=== PATIENT | female | born 1970 | race Caucasian/White ===

== ENCOUNTER 2018-07-01 19:11 | Emergency (ER) | payer BC ==
[2018-07-01] MEDS ORDERED: Sodium Chloride 0.9% 1,000 ML IV ONE (19:27)
--- NOTE | 2018-07-01 19:28 | EDM.PDOC ---
ED HPI GENERAL MEDICAL PROBLEM - General Chief Complaint: General Stated Complaint: dizzy spells,light headed Time Seen by Provider: 07/01/18 19:28 Source of Information: Reports: Patient - History of Present Illness INITIAL COMMENTS - FREE TEXT/NARRATIVE: HISTORY AND PHYSICAL: History of present illness: [Patient presents with dizziness associated with turning her head to the left has been present off-and-on for several months, apparently she had a recent MRI in May performed in [place] she doesn't known history of a pituitary adenoma that she is following She's also had recent sinus infection that was treated with unknown antibiotic a month prior 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 Gaviria for treatment of this As no fever nausea vomiting chills sweats ] Review of systems: As per history of present illness and below otherwise all systems reviewed and negative. Past medical history: As per history of present illness and as reviewed below otherwise noncontributory. Surgical history: As per history of present illness and as reviewed below otherwise noncontributory. Social history: No reported history of drug or alcohol abuse. Family history: As per history of present illness and as reviewed below otherwise noncontributory. Physical exam: HEENT: Atraumatic, normocephalic, pupils reactive, negative for conjunctival pallor or scleral icterus, mucous membranes moist, throat clear, neck supple, nontender, trachea midline. Lungs: Clear to auscultation, breath sounds equal bilaterally, chest nontender. Heart: S1S2, regular, negative for clicks, rubs, or JVD. Abdomen: Soft, nondistended, nontender. Negative for masses or hepatosplenomegaly. Negative for costovertebral tenderness. Pelvis: Stable nontender. Genitourinary: Deferred. Rectal: Deferred. Extremities: Atraumatic, negative for cords or calf pain. Neurovascular unremarkable. Neuro: Awake, alert, oriented. Cranial nerves II through XII unremarkable. Cerebellum unremarkable. Motor and sensory unremarkable throughout. Exam nonfocal. Diagnostics: [CBC CMP UA troponin EKG Chest [address] no contrast] MRI performed in May with reported pituitary adenoma per patient, MRI was performed in [place] results not available at this time Therapeutics: [Normal saline] 1 500 mg by mouth daily #10 no refill Scopolamine patch [id number]-[id number] symptomatic therapy Follow-up with primary Impression: Sphenoid sinusitis [Benign positional vertigo] Carpal tunnel syndrome Pituitary adenoma per patient history Definitive disposition and diagnosis as appropriate pending reevaluation and review of above. 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: Musculoskeletal History: Reports: None Neurological History: Reports: None Psychiatric History: Reports: None Endocrine/Metabolic History: Reports: Hypothyroidism Other Endocrine/Metabolic History: Pituitary adenoma Hematologic History: Reports: None Immunologic History: Reports: None Oncologic (Cancer) History: Reports: None Dermatologic History: Reports: None - Infectious Disease History Infectious Disease History: Reports: None - Past Surgical History Head Surgeries/Procedures: Reports: None Endocrine Surgical History: Reports: Thyroidectomy Social & Family History - Family History Family Medical History: Noncontributory - Tobacco Use Smoking Status *Q: Never Smoker Second Hand Smoke Exposure: No - Caffeine Use Caffeine Use: Reports: Coffee - Recreational Drug Use Recreational Drug Use: No ED ROS GENERAL - Review of Systems Review Of Systems: See Below ED EXAM, GENERAL - Physical Exam Exam: See Below Course - Vital Signs Last Recorded V/S: Last Vital Signs Temp 97.3 F 07/01/18 19:19 Pulse 65 07/01/18 19:19 Resp 16 07/01/18 19:19 BP 130/71 07/01/18 19:19 Pulse Ox 98 07/01/18 19:19 - Orders/Labs/Meds Orders: Active Orders 24 hr Category Date Time Status EKG Documentation Completion [RC] STAT Care 07/01/18 19:26 Active Labs: Laboratory Tests 07/01/18 07/01/18 07/01/18 Range/Units 19:28 19:39 19:39 WBC 7.32 (4.0-11.0) K/uL RBC 4.59 (4.30-5.90) M/uL Hgb 13.9 (12.0-16.0) g/dL Hct 39.4 (36.0-46.0) % MCV 85.8 (80.0-98.0) fL MCH 30.3 (27.0-32.0) pg MCHC 35.3 (31.0-37.0) g/dL RDW Std Deviation 40.3 (28.0-62.0) fl RDW Coeff of Marco Antonio 13 (11.0-15.0) % Plt Count 284 (150-400) K/uL MPV 9.00 (7.40-12.00) fL Neut % (Auto) 46.6 L (48.0-80.0) % Lymph % (Auto) 43.3 H (16.0-40.0) % Prentiss % (Auto) 7.9 (0.0-15.0) % Eos % (Auto) 1.8 (0.0-7.0) % Baso % (Auto) 0.4 (0.0-1.5) % Neut # (Auto) 3.4 (1.4-5.7) K/uL Lymph # (Auto) 3.2 H (0.6-2.4) K/uL Prentiss # (Auto) 0.6 (0.0-0.8) K/uL Eos # (Auto) 0.1 (0.0-0.7) K/uL Baso # (Auto) 0.0 (0.0-0.1) K/uL Nucleated RBC % 0.0 /100WBC Nucleated RBCs # 0 K/uL Sodium 135 L (136-145) mmol/L Potassium 4.0 (3.5-5.1) mmol/L Chloride 100 (98-107) mmol/L Carbon Dioxide 23.9 (21.0-32.0) mmol/L BUN 15 (7.0-18.0) mg/dL Creatinine 0.7 (0.6-1.0) mg/dL Est Cr Clr Drug Dosing 101.60 mL/min Estimated GFR (MDRD) > 60.0 ml/min Glucose 91 (74-106) mg/dL Calcium 8.9 (8.5-10.1) mg/dL Total Bilirubin 0.3 (0.2-1.0) mg/dL AST 19 (15-37) IU/L ALT 39 (14-63) IU/L Alkaline Phosphatase 81 (46-116) U/L Troponin I < 0.050 (0.000-0.056) ng/mL Total Protein 8.2 (6.4-8.2) g/dL Albumin 4.1 (3.4-5.0) g/dL Globulin 4.1 H (2.6-4.0) g/dL Albumin/Globulin Ratio 1.0 (0.9-1.6) Urine Color YELLOW Urine Appearance CLEAR Urine pH 7.0 (5.0-8.0) Ur Specific Clyo 1.020 (1.001-1.035) Urine Protein NEGATIVE (NEGATIVE) mg/dL Urine Glucose (UA) NEGATIVE (NEGATIVE) mg/dL Urine Ketones 40 H (NEGATIVE) mg/dL Urine Occult Blood NEGATIVE (NEGATIVE) Urine Nitrite NEGATIVE (NEGATIVE) Urine Bilirubin NEGATIVE (NEGATIVE) Urine Urobilinogen 0.2 (<2.0) EU/dL Ur Leukocyte Esterase NEGATIVE (NEGATIVE) Meds: Medications Discontinued Medications Generic Name Dose Route Start Last Admin Trade Name Freq PRN Reason Stop Dose Admin Sodium Chloride 1,000 mls @ 999 mls/hr 07/01/18 19:27 07/01/18 19:45 Normal Saline IV 07/01/18 20:27 999 mls/hr STAT ONE Administration Departure - Departure Time of Disposition: 20:41 Disposition: Home, Self-Care 01 Condition: Good Clinical Impression: Sinusitis, Pituitary adenoma, Carpal tunnel syndrome - Discharge Information Referrals: PCP,None [Primary Care Provider] - Forms: ED Department Discharge Additional Instructions: Medication as prescribed [id number] symptomatic therapy is discussed Return if symptoms persist or worsen Follow-up with primary care in [place] for continued management of the pituitary adenoma He may consider following with Dr. Gar concerning level tunnel symptoms, she can a contact number below to schedule appropriate follow-up [facility] - Plastic Surgery Professional Building [address] [place] [address], [address] [place] [address] [facility] - [facility]NT [address] [place] [id number] The following information is given to patients seen in the emergency department who are being discharged to home. This information is to outline your options for follow-up care. We provide all patients seen in our emergency department with a follow-up referral. The need for follow-up, as well as the timing and circumstances, are variable depending upon the specifics of your emergency department visit. If you don't have a primary care physician on staff, we will provide you with a referral. We always advise you to contact your personal physician following an emergency department visit to inform them of the circumstance of the visit and for follow-up with them and/or the need for any referrals to a consulting specialist. The emergency department will also refer you to a specialist when appropriate. This referral assures that you have the opportunity for follow-up care with a specialist. All of these measure are taken in an effort to provide you with optimal care, which includes your follow-up. Under all circumstances we always encourage you to contact your private physician who remains a resource for coordinating your care. When calling for follow-up care, please make the office aware that this follow-up is from your recent emergency room visit. If for any reason you are refused follow-up, please contact the [facility] emergency department at and asked to speak to the emergency department charge nurse. - My Orders Last 24 Hours: My Active Orders 07/01/18 19:26 EKG Documentation Completion [RC] STAT - Assessment/Plan Last 24 Hours: My Active Orders 07/01/18 19:26 EKG Documentation Completion [RC] STAT
--- NOTE | 2018-07-01 20:08 | CT ---
INDICATION: Dizziness TECHNIQUE: CT Head without i.v. contrast. COMPARISON: None FINDINGS: CSF space: The ventricles are normal for age. Brain: No evidence of mass, acute infarction or hemorrhage is seen. No mass-effect or midline shift is seen. The brain parenchyma is otherwise normal in appearance with preservation of the brown-white matter junction. Calvarium: Near-complete opacification of the left sphenoid sinus is noted. There remainder of the paranasal sinuses are well aerated. The mastoid air cells are clear. The visualized orbits are grossly unremarkable. The calvarium is unremarkable in appearance with no fractures identified. IMPRESSIONS: 1. No evidence of acute infarction, intracranial hemorrhage, or mass-effect seen. 2. Near-complete opacification of the left sphenoid sinus is noted. Dictated by Remi Castellon MD @ 07/01/2018 8:08:26 PM Please note that all CT scans at this facility use dose modulation, iterative reconstruction, and/or weight-based dosing when appropriate to reduce radiation dose to as low as reasonably achievable. Dictated by: Remi Castellon MD @ 07/01/2018 20:08:29 (Electronically Signed)
[2018-07-01 20:12] LABS: CHLORIDE,CL 100 mmol/L (98-107); SODIUM,NA 135 mmol/L (136-145)
--- NOTE | 2018-07-01 20:30 | CR ---
INDICATION: Shortness of breath TECHNIQUE: Chest radiograph 1 view COMPARISON: None FINDINGS: Mediastinum: The mediastinum is normal in appearance. The heart silhouette is normal in size and morphology. Lung: Both lungs are unremarkable in appearance. No sign of pleural effusion seen. No pneumothorax is identified. Musculoskeletal: Unremarkable for age. IMPRESSION: 1. No acute cardiopulmonary disease is seen. Dictated by: Remi Castellon MD @ 07/01/2018 20:27:38 (Electronically Signed)
== END 2018-07-01 21:13 | disposition home or self-care (01) ==
LOC: MW.ED 19:11
DX: H81.10 Benign paroxysmal vertigo, unspecified ear (principal); G56.03 Carpal tunnel syndrome, bilateral upper limbs; J32.3 Chronic sphenoidal sinusitis; D35.2 Benign neoplasm of pituitary gland
CPT/HCPCS: 70450; 71045; 80053; 81003; 84484; 85025; 93005; 96360; 99284; J7040

== ENCOUNTER 2018-11-18 17:05 | Emergency (ER) | payer BC ==
[2018-11-18] MEDS ORDERED: Ondansetron 4 MG/2 ML SDV IVPUSH ONE (17:08)
[2018-11-18] MEDS ORDERED: Ketorolac 30 MG/ML SDV IVPUSH ONE (17:08)
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
[2018-11-18] MEDS ORDERED: Morphine 2 MG/ML Syringe IVPUSH ONE (18:37)
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
== END 2018-11-18 20:10 | disposition home or self-care (01) ==
LOC: MW.ED 17:05
DX: S89.91XA Unspecified injury of right lower leg, initial encounter (principal); E03.9 Hypothyroidism, unspecified; Z79.899 Other long term (current) drug therapy; V89.2XXA Person injured in unspecified motor-vehicle accident, traffic, initial encounter
CPT/HCPCS: 71045; 72040; 73502; 73560; 73610; 96374; 96375; 99283; J1885; J2270; J2405

== ENCOUNTER 2020-10-13 13:48 | Emergency (ER) | payer BC ==
--- NOTE | 2020-10-13 14:04 | EDM.PDOC ---
ED HPI GENERAL MEDICAL PROBLEM - General Chief Complaint: Headache Stated Complaint: HEADACHE Time Seen by Provider: 10/13/20 13:49 Source of Information: Reports: Patient History Limitations: Reports: No Limitations - History of Present Illness INITIAL COMMENTS - FREE TEXT/NARRATIVE: HISTORY AND PHYSICAL: History of present illness: Patient is a 50-year-old female who presents to the emergency room with complaints of a tension type headache over the past 5 days. She describes it as pressure type band around her scalp and behind her eyes with light sensitivity and nausea. She has been using ibuprofen with out much relief. She does mention that she has had a menstrual period (normal timing but slightly heavier) for 7 days and is concerned it may be related to menopause. Patient denies any fever, chills, change in vision, syncope or near syncope. Denies any chest pain, back pain, shortness of breath or cough. Denies any abdominal pain, nausea, vomiting, diarrhea, constipation or dysuria. Has not noted any blood in urine or stool. No concern for . Patient has been eating and drinking appropriately. Review of systems: As per history of present illness and below otherwise all systems reviewed and negative. Past medical history: As per history of present illness and as reviewed below otherwise noncontributory. Surgical history: As per history of present illness and as reviewed below otherwise noncontributory. Social history: See social history for further information Family history: As per history of present illness and as reviewed below otherwise noncontributory. Physical exam: General: Well developed and well nourished. Alert and orientated x 3. Nontoxic in appearance and in no acute distress. Vital signs are stable and have been reviewed by me. Nursing notes were reviewed. HEENT: Atraumatic, normocephalic, pupils equal and reactive bilaterally, negative for conjunctival pallor or scleral icterus, mucous membranes moist, TMs normal bilaterally, throat clear, neck supple, nontender, trachea midline. No drooling or trismus noted. No meningeal signs. No hot potato voice noted. Lungs: Clear to auscultation bilaterally. No wheezes, rales, or rhonchi. Chest nontender. Normal work of breathing, no accessory muscles used. Heart: S1S2, regular rate and rhythm without overt murmur, gallops, or rubs. No JVD. No peripheral edema Abdomen: Soft, nondistended, nontender. Normoactive bowel sounds. Negative for masses or costovertebral tenderness. Pelvis: Stable nontender. Genitourinary/Rectal: Deferred. Skin: Intact, warm, dry. No lesions or rashes noted. Hematologic: No petechiae or purpra. Mucosa appropriate color and normal nail bed color and refill. Extremities: Atraumatic, moves all extremities per self without difficulty or deficits, negative for cords or calf pain. Neurovascular unremarkable. Neuro: Awake, alert, oriented. Cranial nerves II through XII unremarkable. Cerebellum unremarkable. Motor and sensory unremarkable throughout. Exam nonfocal. Psychiatric: Mood and affect are appropriate. Normal thought process. Answering questions appropriately. Notes: *This patient was seen and evaluated during the 2019 SARS-CoV-2 novel coronavirus pandemic period. Community viral transmission is ongoing at time of this encounter and the emergency department is operating under pandemic response procedures. Patient's head CT is unremarkable. Her symptoms have improved greatly. I have talked with the patient about today's findings, in addition to providing specific details for plan of care. Reassessment at the time of disposition demonstrates that the patient is in no acute distress. The patient is stable for discharge, counseling was provided and we discussed in great detail signs and symptoms that would prompt them to return to the Emergency Department. Medication, follow up and supportive care measures were reviewed and discussed. Voices understanding and is agreeable to plan of care. Denies any further questions or concerns at this time. Diagnostics: Head CT Therapeutics: IV fluid, Zofran, Ativan Prescription: None Impression: Tension headache Plan: 1. You were evaluated today on an emergent basis. Your head CT is unremarkable. 2. You can alternate Tylenol and ibuprofen as needed for pain and fever management. 3. We encourage you to follow up with your primary care provider and/or recommended specialist in the next few days for re-evaluation and further care/management. 4. If your symptoms should worsen, new symptoms develop or any of the signs and symptoms we discussed should arise please return to the emergency room or call 911 (if needed). Definitive disposition and diagnosis as appropriate pending reevaluation and review of above. 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: Musculoskeletal History: Reports: None Neurological History: Reports: None Psychiatric History: Reports: None Endocrine/Metabolic History: Reports: Hypothyroidism Other Endocrine/Metabolic History: Pituitary adenoma Hematologic History: Reports: None Immunologic History: Reports: None Oncologic (Cancer) History: Reports: None Dermatologic History: Reports: None - Infectious Disease History Infectious Disease History: Reports: None - Past Surgical History Head Surgeries/Procedures: Reports: None Endocrine Surgical History: Reports: Thyroidectomy Social & Family History - Family History Family Medical History: No Pertinent Family History - Caffeine Use Caffeine Use: Reports: Coffee ED ROS GENERAL - Review of Systems Review Of Systems: Comprehensive ROS is negative, except as noted in HPI. - Physical Exam Exam: See Below (See dictation) Course - Vital Signs Last Recorded V/S: Last Vital Signs Temp 98.0 F 10/13/20 15:05 Pulse 84 10/13/20 15:05 Resp 18 10/13/20 15:05 BP 131/81 10/13/20 15:05 Pulse Ox 98 10/13/20 15:05 - Orders/Labs/Meds Meds: Medications Discontinued Medications Generic Name Dose Route Start Last Admin Trade Name Refugio PRN Reason Stop Dose Admin Sodium Chloride 1,000 mls @ 999 mls/hr 10/13/20 14:09 10/13/20 14:43 Normal Saline IV 10/13/20 15:09 999 mls/hr STAT ONE Administration Ketorolac Tromethamine 30 mg 10/13/20 14:09 10/13/20 14:43 Ketorolac 30 Mg/Ml Sdv IVPUSH 10/13/20 14:10 30 mg ONETIME ONE Administration Lorazepam 1 mg 10/13/20 14:10 10/13/20 14:42 Lorazepam 2 Mg/Ml Sdv IVPUSH 10/13/20 14:11 1 mg ONETIME ONE Administration Ondansetron HCl 4 mg 10/13/20 14:09 10/13/20 14:42 Ondansetron 4 Mg/2 Ml Sdv IVPUSH 10/13/20 14:10 4 mg ONETIME ONE Administration Departure - Departure Time of Disposition: 15:42 Disposition: Home, Self-Care 01 Clinical Impression: Tension-type headache - Discharge Information Instructions: General Headache Without Cause, [id number] Referrals: PCP,None [Primary Care Provider] - Forms: ED Department Discharge Additional Instructions: The following information is given to patients seen in the emergency department who are being discharged to home. This information is to outline your options for follow-up care. We provide all patients seen in our emergency department with a follow-up referral. The need for follow-up, as well as the timing and circumstances, are variable depending upon the specifics of your emergency department visit. If you don't have a primary care physician on staff, we will provide you with a referral. We always advise you to contact your personal physician following an emergency department visit to inform them of the circumstance of the visit and for follow-up with them and/or the need for any referrals to a consulting spec ialist. The emergency department will also refer you to a specialist when appropriate. This referral assures that you have the opportunity for follow-up care with a specialist. All of these measure are taken in an effort to provide you with optimal care, which includes your follow-up. Under all circumstances we always encourage you to contact your private physician who remains a resource for coordinating your care. When calling for follow-up care, please make the office aware that this follow-up is from your recent emergency room visit. If for any reason you are refused follow-up, please contact the [facility] Emergency Department at and asked to speak to the emergency department charge nurse. [facility] [address] [place] [id number] [facility] [address] [place] [id number] Thank you for choosing the [facility] emergency department in [place] for your medical needs today. It was a pleasure caring for you. Today you were seen in the emergency department for headache. 1. You were evaluated today on an emergent basis. Your head CT is unremarkable. 2. You can alternate Tylenol and ibuprofen as needed for pain and fever management. 3. We encourage you to follow up with your primary care provider and/or recommended specialist in the next few days for re-evaluation and further care/management. 4. If your symptoms should worsen, new symptoms develop or any of the signs and symptoms we discussed should arise please return to the emergency room or call 911 (if needed). Sepsis Event Note (ED) - Evaluation Sepsis Screening Result: No Definite Risk - Focused Exam Vital Signs: Vital Signs Temp Pulse Resp BP Pulse Ox 10/13/20 15:05 98.0 F 84 18 131/81 98 10/13/20 14:01 96.3 F L 78 19 150/79 H 98
[2020-10-13] MEDS ORDERED: Ondansetron 4 MG/2 ML SDV IVPUSH ONE (14:09)
[2020-10-13] MEDS ORDERED: Ketorolac 30 MG/ML SDV IVPUSH ONE (14:09)
[2020-10-13] MEDS ORDERED: Sodium Chloride 0.9% 1,000 ML IV ONE (14:09)
[2020-10-13] MEDS ORDERED: LORazepam 2 MG/ML SDV IVPUSH ONE (14:10)
--- NOTE | 2020-10-13 15:39 | CT ---
INDICATION: Headache TECHNIQUE: CT head without contrast. COMPARISON: None FINDINGS: CSF spaces: Within normal limits for age. Brain parenchyma: The brown-white differentiation is normal. No sign of mass, hemorrhage, or midline shift. Skull base and calvarium: The visualized paranasal sinuses and mastoid air cells demonstrate no acute or significant findings. The visualized orbits are grossly unremarkable. No skull fractures. IMPRESSION: Unremarkable noncontrast head CT. Please note that all CT scans at this facility use dose modulation, iterative reconstruction, and/or weight-based dosing when appropriate to reduce radiation dose to as low as reasonably achievable. Dictated by Talib Oliveira MD @ 10/13/2020 3:37:[address] Talib Oliveira @ Oct 13 2020 3:37PM
== END 2020-10-13 16:07 | disposition home or self-care (01) ==
LOC: MW.ED 13:48
DX: G44.209 Tension-type headache, unspecified, not intractable (principal); E03.9 Hypothyroidism, unspecified; Z79.899 Other long term (current) drug therapy
CPT/HCPCS: 70450; 96374; 96375; 99284; J1885; J2060; J2405; J7030; 99283

== ENCOUNTER 2020-10-16 21:18 | Emergency (ER) | payer BC ==
--- NOTE | 2020-10-16 21:31 | EDM.PDOC ---
ED HPI GENERAL MEDICAL PROBLEM - General Chief Complaint: Headache Stated Complaint: MIGRAINE, NOT GETTING BETTER Time Seen by Provider: 10/16/20 21:24 Source of Information: Reports: Patient History Limitations: Reports: No Limitations - History of Present Illness INITIAL COMMENTS - FREE TEXT/NARRATIVE: 50-year-old female past medical history of pituitary adenoma, status post thyroidectomy on Synthroid presents for headache. Patient notes that she was seen in the emergency department a few days ago for similar. She was concerned that maybe was related to her menopause and she is currently on her menstrual period. She was diagnosed with tension headache and treated with IV medications in the ER and did feel better but notes that since going home the headache is recurred. Not worst headache of life. Not thunderclap onset. No associated visual changes or one-sided body weakness or slurred speech or confusion. Headache is in the bilateral back of her neck radiating through her temples. It is constant. She has tried Tylenol Motrin without relief. She did have a CT scan on the that was normal. 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: Musculoskeletal History: Reports: None Neurological History: Reports: None Psychiatric History: Reports: None Endocrine/Metabolic History: Reports: Hypothyroidism Other Endocrine/Metabolic History: Pituitary adenoma Hematologic History: Reports: None Immunologic History: Reports: None Oncologic (Cancer) History: Reports: None Dermatologic History: Reports: None - Infectious Disease History Infectious Disease History: Reports: Chicken Pox - Past Surgical History Head Surgeries/Procedures: Reports: None Endocrine Surgical History: Reports: Thyroidectomy Social & Family History - Family History Family Medical History: No Pertinent Family History - Caffeine Use Caffeine Use: Reports: Coffee ED ROS GENERAL - Review of Systems Review Of Systems: Comprehensive ROS is negative, except as noted in HPI. ED EXAM, GENERAL - Physical Exam Exam: See Below Exam Limited By: No Limitations General Appearance: Alert, WD/WN, No Apparent Distress Eye Exam: Bilateral Eye: EOMI, PERRL Ears: Hearing Grossly Normal Throat/Mouth: Normal Voice, No Airway Compromise Head: Atraumatic, Normocephalic Neck: Normal Inspection, Supple Respiratory/Chest: No Respiratory Distress, Lungs Clear, Normal Breath Sounds, No Accessory Muscle Use Cardiovascular: Normal Peripheral Pulses, Regular Rate, Rhythm Extremities: Normal Inspection Neurological: Alert, Oriented, CN II-XII Intact, Normal Cognition, Normal Gait, No Motor/Sensory Deficits Psychiatric: Normal Affect, Normal Mood Skin Exam: Warm, Dry, Intact, Normal Color Course - Vital Signs Last Recorded V/S: Last Vital Signs Temp 96.8 F L 10/16/20 21:25 Pulse 72 10/16/20 21:25 Resp 18 10/16/20 21:25 BP 160/87 H 10/16/20 21:25 Pulse Ox 98 10/16/20 21:25 - Orders/Labs/Meds Orders: Active Orders 24 hr Category Date Time Status Sodium Chloride 0.9% [Saline Flush] Med 10/16/20 21:53 Active 10 ml FLUSH ASDIRECTED PRN Sodium Chloride 0.9% [Saline Flush] Med 10/16/20 21:53 Active 2.5 ml FLUSH ASDIRECTED PRN Saline Lock Insert [OM.PC] Stat Oth 10/16/20 21:53 Ordered Medication Orders Sodium Chloride (Sodium Chloride 0.9% 10 Ml Syringe) 10 ml FLUSH ASDIRECTED PRN PRN Reason: Keep Vein Open Last Admin: 10/16/20 21:58 Dose: 10 ml Documented by: QUIRINO Sodium Chloride (Sodium Chloride 0.9% 2.5 Ml Syringe) 2.5 ml FLUSH ASDIRECTED PRN PRN Reason: Keep Vein Open Last Admin: 10/16/20 21:58 Dose: 2.5 ml Documented by: QUIRINO Labs: Laboratory Tests 10/16/20 10/16/20 Range/Units 22:00 22:00 WBC 5.70 (4.0-11.0) K/uL RBC 4.41 (4.30-5.90) M/uL Hgb 13.4 (12.0-16.0) g/dL Hct 38.3 (36.0-46.0) % MCV 86.8 (80.0-98.0) fL MCH 30.4 (27.0-32.0) pg MCHC 35.0 (31.0-37.0) g/dL RDW Std Deviation 41.5 (28.0-62.0) fl RDW Coeff of Marco Antonio 13 (11.0-15.0) % Plt Count 282 (150-400) K/uL MPV 9.50 (7.40-12.00) fL Neut % (Auto) 43.8 L (48.0-80.0) % Lymph % (Auto) 41.1 H (16.0-40.0) % Mcdowell % (Auto) 10.5 (0.0-15.0) % Eos % (Auto) 4.2 (0.0-7.0) % Baso % (Auto) 0.4 (0.0-1.5) % Neut # (Auto) 2.5 (1.4-5.7) K/uL Lymph # (Auto) 2.3 (0.6-2.4) K/uL Mcdowell # (Auto) 0.6 (0.0-0.8) K/uL Eos # (Auto) 0.2 (0.0-0.7) K/uL Baso # (Auto) 0.0 (0.0-0.1) K/uL Nucleated RBC % 0.0 /100WBC Nucleated RBCs # 0 K/uL Sodium 139 (136-145) mmol/L Potassium 4.5 (3.5-5.1) mmol/L Chloride 104 (98-107) mmol/L Carbon Dioxide 26.9 (21.0-32.0) mmol/L BUN 16 (7.0-18.0) mg/dL Creatinine 0.7 (0.6-1.0) mg/dL Est Cr Clr Drug Dosing 99.37 mL/min Estimated GFR (MDRD) > 60.0 ml/min Glucose 99 (74-106) mg/dL Calcium 8.3 L (8.5-10.1) mg/dL Total Bilirubin 0.2 (0.2-1.0) mg/dL AST 14 L (15-37) IU/L ALT 27 (14-63) IU/L Alkaline Phosphatase 71 (46-116) U/L Total Protein 7.6 (6.4-8.2) g/dL Albumin 3.6 (3.4-5.0) g/dL Globulin 4.0 (2.6-4.0) g/dL Albumin/Globulin Ratio 0.9 (0.9-1.6) Free T4 1.68 H (0.76-1.46) ng/dL Free T3 2.96 (2.18-3.98) pg/mL Meds: Medications Generic Name Dose Route Start Last Admin Trade Name Freq PRN Reason Stop Dose Admin Sodium Chloride 10 ml 10/16/20 21:53 10/16/20 21:58 Sodium Chloride 0.9% 10 Ml Syringe FLUSH 10 ml ASDIRECTED PRN Administration Keep Vein Open Sodium Chloride 2.5 ml 10/16/20 21:53 10/16/20 21:58 Sodium Chloride 0.9% 2.5 Ml Syringe FLUSH 2.5 ml ASDIRECTED PRN Administration Keep Vein Open Discontinued Medications Generic Name Dose Route Start Last Admin Trade Name Freq PRN Reason Stop Dose Admin Diphenhydramine HCl 50 mg 10/16/20 21:53 10/16/20 21:58 Diphenhydramine 50 Mg/Ml Sdv IVPUSH 10/16/20 21:54 50 mg ONETIME ONE Administration Sodium Chloride 1,000 mls @ 999 mls/hr 10/16/20 21:53 10/16/20 21:58 Normal Saline IV 10/16/20 22:53 999 mls/hr .Bolus ONE Administration Ketorolac Tromethamine 15 mg 10/16/20 21:54 10/16/20 21:58 Ketorolac 15 Mg/Ml Sdv IVPUSH 10/16/20 21:55 15 mg ONETIME ONE Administration Metoclopramide HCl 10 mg 10/16/20 21:53 10/16/20 21:58 Metoclopramide 10 Mg/2 Ml Sdv IVPUSH 10/16/20 21:54 10 mg ONETIME ONE Administration - Re-Assessments/Exams Free Text/Narrative Re-Assessment/Exam: 10/16/20 21:56 We will treat symptomatically with 1 L IV fluid bolus, Reglan, Toradol, Benadryl. 10/16/20 23:22 Patient's headache is substantially improved. Her lab work does show a mild elevation of her free T4. I advised her to follow-up with her physician regarding this lab abnormality. Will discharge with a course of Fioricet. Return precautions were discussed at length. Patient understands and agrees with plan. Departure - Departure Time of Disposition: 23:22 Disposition: Home, Self-Care 01 Condition: Good Clinical Impression: Elevated serum free T4 level Headache Qualifiers: Headache type: unspecified Headache chronicity pattern: acute headache Intractability: not intractable Qualified Code(s): R51.9 - Headache, unspecified - Discharge Information Instructions: Migraine Headache Referrals: PCP,None [Primary Care Provider] - Forms: ED Department Discharge Additional Instructions: Please follow up with neurology, number provided below: [facility] [address], [address] [place] [address] The following information is given to patients seen in the emergency department who are being discharged to home. This information is to outline your options for follow-up care. We provide all patients seen in our emergency department with a follow-up referral. The need for follow-up, as well as the timing and circumstances, are variable depending upon the specifics of your emergency department visit. If you don't have a primary care physician on staff, we will provide you with a referral. We always advise you to contact your personal physician following an emergency department visit to inform them of the circumstance of the visit and for follow-up with them and/or the need for any referrals to a consulting specialist. The emergency department will also refer you to a specialist when appropriate. This referral assures that you have the opportunity for follow-up care with a specialist. All of these measure are taken in an effort to provide you with optimal care, which includes your follow-up. Under all circumstances we always encourage you to contact your private physician who remains a resource for coordinating your care. When calling for follow-up care, please make the office aware that this follow-up is from your recent emergency room visit. If for any reason you are refused follow-up, please contact the [facility] Emergency Department at and asked to speak to the emergency department charge nurse. Please follow up with your primary care physician. If you do not have a primary care physician, see below: [facility] [address], [place] [id number] My [facility] [address] [place], [place] [id number] [facility] [address] [place] [address] Sepsis Event Note (ED) - Focused Exam Vital Signs: Vital Signs Temp Pulse Resp BP Pulse Ox 10/16/20 21:25 96.8 F L 72 18 160/87 H 98 - My Orders Last 24 Hours: My Active Orders 10/16/20 21:53 Sodium Chloride 0.9% [Saline Flush] 10 ml FLUSH ASDIRECTED PRN Sodium Chloride 0.9% [Saline Flush] 2.5 ml FLUSH ASDIRECTED PRN Saline Lock Insert [OM.PC] Stat - Assessment/Plan Last 24 Hours: My Active Orders 10/16/20 21:53 Sodium Chloride 0.9% [Saline Flush] 10 ml FLUSH ASDIRECTED PRN Sodium Chloride 0.9% [Saline Flush] 2.5 ml FLUSH ASDIRECTED PRN Saline Lock Insert [OM.PC] Stat
[2020-10-16] MEDS ORDERED: diphenhydrAMINE 50 MG/ML SDV IVPUSH ONE (21:53)
[2020-10-16] MEDS ORDERED: Sodium Chloride 0.9% 2.5 ML Syringe FLUSH PRN (21:53)
[2020-10-16] MEDS ORDERED: Sodium Chloride 0.9% 1,000 ML IV ONE (21:53)
[2020-10-16] MEDS ORDERED: Sodium Chloride 0.9% 10 ML Syringe FLUSH PRN (21:53)
[2020-10-16] MEDS ORDERED: Metoclopramide 10 MG/2 ML SDV IVPUSH ONE (21:53)
[2020-10-16] MEDS ORDERED: Ketorolac 15 MG/ML SDV IVPUSH ONE (21:54)
[2020-10-16 22:37] LABS: BLOOD UREA NITROGEN,BUN 16 mg/dL (7.0-18.0); CARBON DIOXIDE,CO2 26.9 mmol/L (21.0-32.0); CHLORIDE,CL 104 mmol/L (98-107); GLUCOSE RANDOM 99 mg/dL (74-106); POTASSIUM,K 4.5 mmol/L (3.5-5.1); SODIUM,NA 139 mmol/L (136-145)
== END 2020-10-16 23:38 | disposition home or self-care (01) ==
LOC: MW.ED 21:18
DX: R51.9 Headache, unspecified (principal); E03.9 Hypothyroidism, unspecified; Z79.899 Other long term (current) drug therapy; R74.8 Abnormal levels of other serum enzymes
CPT/HCPCS: 36415; 80053; 84439; 84481; 85025; 96374; 96375; 99284; J1200; J1885; J2765; J7030; 99283

== ENCOUNTER 2020-10-25 07:49 | Day surgery (SDC) | payer BC ==
[~2020-10-25 07:49] MED LIST: Lactated Ringers 1,000 ML IV SCH
[2020-10-25] MEDS ORDERED: Scopolamine 1.5 MG Transdermal Patch ONE (08:02)
[2020-10-25] MEDS ORDERED: Metoclopramide 10 MG/2 ML SDV IVPUSH PRN (08:05)
[2020-10-25] MEDS ORDERED: Naloxone 0.4 MG/ML Syringe IVPUSH PRN (08:05)
[2020-10-25] MEDS ORDERED: fentaNYL 100 MCG/2 ML SDV IVPUSH PRN (08:05)
[2020-10-25] MEDS ORDERED: Ondansetron 4 MG/2 ML SDV IVPUSH PRN (08:05)
[2020-10-25] MEDS ORDERED: Morphine 2 MG/ML SYRINGE IVPUSH PRN (08:05)
[2020-10-25] MEDS ORDERED: Albuterol 0.083% 2.5 MG/3 ML Neb Soln NEB PRN (08:05)
[2020-10-25] MEDS ORDERED: HYDROmorphone 2 MG/ML Syringe IVPUSH PRN (08:05)
--- NOTE | 2020-10-25 08:07 | PCM.PREANE ---
Preanesthetic Assessment - Anesthesia/Transfusion/Family Hx Anesthesia History: Prior Anesthesia Without Reaction Transfusion History: No Prior Transfusion(s) - Review of Systems General: No Symptoms Pulmonary: No Symptoms Cardiovascular: No Symptoms Gastrointestinal: No Symptoms Neurological: No Symptoms Other: Reports: None - Physical Assessment NPO Status Date: 10/25/20 NPO Status Time: 00:00 Height: 5 ft 9 in Weight: 182 lb ASA Class: 2 Mental Status: Alert & Oriented x3 Airway Class: Mallampati = 2 Dentition: Reports: Normal Dentition Thyro-Mental Finger Breadths: 4 Mouth Opening Finger Breadths: 4 ROM/Head Extension: Full Lungs: Clear to Auscultation, Normal Respiratory Effort Cardiovascular: Regular Rate, Regular Rhythm - Lab Values: Laboratory Last Values WBC 6.35 K/uL (4.0-11.0) 10/24/20 13:42 RBC 4.43 M/uL (4.30-5.90) 10/24/20 13:42 Hgb 13.2 g/dL (12.0-16.0) 10/24/20 13:42 Hct 38.3 % (36.0-46.0) 10/24/20 13:42 MCV 86.5 fL (80.0-98.0) 10/24/20 13:42 MCH 29.8 pg (27.0-32.0) 10/24/20 13:42 MCHC 34.5 g/dL (31.0-37.0) 10/24/20 13:42 RDW Std Deviation 39.2 fl (28.0-62.0) 10/24/20 13:42 RDW Coeff of Marco Antonio 13 % (11.0-15.0) 10/24/20 13:42 Plt Count 284 K/uL (150-400) 10/24/20 13:42 MPV 9.10 fL (7.40-12.00) 10/24/20 13:42 - Allergies Allergies/Adverse Reactions: Allergies Allergy/AdvReac Type Severity Reaction Status Date / Time No Known Allergies Allergy Verified 10/19/20 15:12 - Acknowledgements Anesthesia Type Planned: General Anesthesia Pt an Appropriate Candidate for the Planned Anesthesia: Yes Alternatives and Risks of Anesthesia Discussed w Pt/Guardian: Yes Pt/Guardian Understands and Agrees with Anesthesia Plan: Yes PreAnesthesia Questionnaire HEENT History: Reports: None Other HEENT History: uses reading glasses, has upper permanent dental bridge Cardiovascular History: Reports: None Respiratory History: Reports: Asthma Gastrointestinal History: Reports: None Genitourinary History: Reports: None EQUIPMENT TECH History: Reports: Musculoskeletal History: Reports: None Neurological History: Reports: None Other Neuro History: has 2 migraines last week Psychiatric History: Reports: None Endocrine/Metabolic History: Reports: Hypothyroidism Other Endocrine/Metabolic History: Pituitary adenoma Hematologic History: Reports: None Immunologic History: Reports: None Oncologic (Cancer) History: Reports: None Dermatologic History: Reports: None - Infectious Disease History Infectious Disease History: Reports: Chicken Pox - Past Surgical History Head Surgeries/Procedures: Reports: None HEENT Surgical History: Reports: Naso-Sinus Surgery, Oral Surgery Other HEENT Surgeries/Procedures: wisdom teeth removed Cardiovascular Surgical History: Reports: None Respiratory Surgical History: Reports: None GI Surgical History: Reports: Colonoscopy Female Surgical History: Reports: Tubal Ligation Endocrine Surgical History: Reports: Thyroidectomy Other Endocrine Surgeries/Procedures: Thyroidectomy for cancer Neurological Surgical History: Reports: None Musculoskeletal Surgical History: Reports: None Oncologic Surgical History: Reports: Other (See Below) Other Oncologic Surgeries/Procedures: Thyroidectomy, 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 - SUBSTANCE USE Tobacco Use Status *Q: Former Tobacco User Tobacco Use Within Last Twelve Months: No Recreational Drug Use History: No - HOME MEDS Home Medications: Home Meds Cabergoline [Dostinex] 0.5 mg PO ASDIRECTED 07/01/18 [History] Montelukast [Singulair] 10 mg PO DAILY 07/01/18 [History] Levothyroxine 100 mcg PO DAILY 10/19/20 [History] - CURRENT (IN HOUSE) MEDS Current Meds: Current Medications Albuterol (Albuterol 0.083% 2.5 Mg/3 Ml Neb Soln) 2.5 mg NEB ONETIME PRN PRN Reason: Wheezing Droperidol (Droperidol 5 Mg/2 Ml Sdv) 0.625 mg IVPUSH ONETIME PRN PRN Reason: Nausea/Vomiting Fentanyl (Fentanyl 100 Mcg/2 Ml Sdv) 50 mcg IVPUSH Q5M PRN PRN Reason: Pain (mild 1-3) Hydromorphone HCl (Hydromorphone 2 Mg/Ml Syringe) 0.5 mg IVPUSH Q10M PRN PRN Reason: Pain (moderate 4-6) Lactated Ringer's (Ringers, Lactated) 1,000 mls @ 125 mls/hr IV ASDIRECTED AMRITA Metoclopramide HCl (Metoclopramide 10 Mg/2 Ml Sdv) 10 mg IVPUSH ONETIME PRN PRN Reason: Nausea/Vomiting Morphine Sulfate (Morphine 10 Mg/Ml Syringe) 2 mg IVPUSH Q10M PRN PRN Reason: Pain (severe 7-10) Naloxone HCl (Naloxone 0.4 Mg/Ml Syringe) 0.1 mg IVPUSH ASDIRECTED PRN PRN Reason: Respiratory Depression Ondansetron HCl (Ondansetron 4 Mg/2 Ml Sdv) 4 mg IVPUSH ONETIME PRN PRN Reason: Nausea/Vomiting Discontinued Medications Scopolamine (Scopolamine 1.5 Mg Transdermal Patch) Confirm Administered Dose 1.5 mg .ROUTE .[facility] Stop: 10/25/20 08:03
[2020-10-25] MEDS ORDERED: propofoL 100 ML ONE (08:19)
[2020-10-25] MEDS ORDERED: Ketorolac 30 MG/ML SDV ONE (08:20)
[2020-10-25] MEDS ORDERED: Metoclopramide 10 MG/2 ML SDV ONE (08:20)
[2020-10-25] MEDS ORDERED: Ondansetron 4 MG/2 ML SDV ONE (08:20)
[2020-10-25] MEDS ORDERED: Dexamethasone 4 MG/ML 5 ML MDV ONE (08:20)
[2020-10-25] MEDS ORDERED: Lidocaine 2% 5 ML SDV ONE (08:37)
[2020-10-25] MEDS ORDERED: Glycopyrrolate 0.2 MG/ML SDV ONE (08:37)
[2020-10-25] MEDS ORDERED: fentaNYL 100 MCG/2 ML SDV ONE (09:02)
--- NOTE | 2020-10-25 10:31 | PCM.OPNOTE ---
- General Post-Op/Procedure Note Date of Surgery/Procedure: 10/25/20 Operative Procedure(s): diagnostic hysteroscopy, dilatation and curettage, thermal endometrial ablation (Mirna) Findings: Uterus sounds to 8.5 cm, no lesions, moderate visualization Pre Op Diagnosis: menorrhagia Post-Op Diagnosis: Same Anesthesia Technique: Other (see below) (TIVA) Primary Surgeon: Ana Malhotra Anesthesia Provider: Tucker [place] Coordinator: Tessy James Pathology: endometrial curettings for frozen and permanent section Fluid Replacement, Intraop: 750 EBL in mLs: 10 Drain/Tube Comments:: hysteroscopic deficit 20 ml NS Complications: None Condition: Good Free Text/Narrative:: Intake & Output 10/24/20 10/25/20 10/25/20 22:59 06:59 14:59 Output Total 50 Balance -50
--- NOTE | 2020-10-25 10:37 | PCM.POSTAN ---
POST ANESTHESIA ASSESSMENT - MENTAL STATUS Mental Status: Alert, Oriented - VITAL SIGNS Vital Signs: Last Vital Signs Temp 36.4 C 10/25/20 10:26 Pulse 61 10/25/20 10:32 Resp 14 10/25/20 10:32 BP 98/54 L 10/25/20 10:32 Pulse Ox 96 10/25/20 10:32 - RESPIRATORY Respiratory Status: Respiratory Rate WNL, Airway Patent, O2 Saturation Stable - CARDIOVASCULAR CV Status: Pulse Rate WNL, Blood Pressure Stable - GASTROINTESTINAL GI Status: No Symptoms - POST OP HYDRATION Hydration Status: Adequate & Stable
--- NOTE | 2020-10-25 10:38 | PCM48HPAN ---
Post Anesthesia Note - EVALUATION WITHIN 48HRS OF ANESTHETIC Vital Signs in Normal Range: Yes Patient Participated in Evaluation: Yes Respiratory Function Stable: Yes Airway Patent: Yes Cardiovascular Function Stable: Yes Hydration Status Stable: Yes Pain Control Satisfactory: Yes Nausea and Vomiting Control Satisfactory: Yes Mental Status Recovered: Yes Vital Signs: Last Vital Signs Temp 36.4 C 10/25/20 10:26 Pulse 61 10/25/20 10:32 Resp 14 10/25/20 10:32 BP 98/54 L 10/25/20 10:32 Pulse Ox 96 10/25/20 10:32
--- NOTE | 2020-10-25 13:05 | OR ---
SURGEON: Ana Malhotra M.D. DATE OF PROCEDURE: 10/25/2020 PREOPERATIVE DIAGNOSIS: Menorrhagia. POSTOPERATIVE DIAGNOSIS: Menorrhagia. PROCEDURES: 1. Diagnostic hysteroscopy. 2. Dilatation and curettage. 3. Thermal endometrial ablation. PRIMARY SURGEON: Ana Malhotra M.D. ANESTHESIA: Total IV anesthesia. FINDINGS: Uterus sounded to 8.5 cm. Cervix sounded to 4 cm. The uterine cavity on evaluation showed thickened heterogeneous endometrium. There was difficulty visualizing the tubal ostia, but there were no discrete lesions. Pathology, frozen section of endometrial curettings was benign. COMPLICATIONS: None known. DISPOSITION: Stable to Recovery. PATHOLOGY SPECIMENS: Endometrial curettings for frozen and permanent sections. BRIEF HISTORY: This is a 50-year-old female. She has had heavy prolonged periods. She has had evaluation in the office including an ECC, which was benign. Endometrial biopsy was not tolerated in the office and therefore was deferred to the OR with frozen section. She also had a saline enhanced ultrasound, which did not show any polyps, lesions, or fibroids. She was offered an IUD, expectant management with medications such as tranexamic acid versus thermal endometrial ablation versus lower recommendation of hysterectomy. After discussion of these options, she did desire to proceed with a thermal endometrial ablation with risks discussed including bleeding; infection; injury to bowel, bladder, blood vessels, ureters, or other organs; risk of thromboembolic event; and risk of masking future endometrial cancer. She has had permanent sterilization in the past and understands that she must never become after an endometrial ablation. Understanding all these risks and issues, she does desire to proceed. DESCRIPTION OF PROCEDURE: With the patient in dorsal lithotomy position, under adequate IV sedation, the perineum and vagina were prepped with Betadine and draped in the usual fashion for vaginal surgery. SCDs were in place. The bladder had been drained with a red Santana catheter. Appropriate time-out was held. Bimanual examination revealed an anteverted 8-week size uterus. Speculum was placed in the vagina. The cervix was dilated to 6 mm Hegar dilator without any difficulty. The 6 mm hysteroscope was placed into to the uterine cavity. It was difficult to get good distention with the small hysteroscope; however, there were no evidence of any lesions, polyps, or fibroids. The tubal ostia were poorly visualized. This being completed, sharp curettage of the endometrium was performed and sent to Pathology. 30 minutes later, pathology report was available for frozen section revealing benign uterine endometrium. Following this, I did proceed with the Mirna endometrial ablation. The cervix was sounded to 4 cm. The stop was placed at 4 cm, and following directions for the machine, the ablation wand was placed to the uterine fundus. The wand was expanded. The balloon was insufflated, and test cycle was completed, followed by a treatment cycle of 120 seconds. This being completed, the balloon was desufflated. The arms were retracted. The wand was removed. All the instruments were removed from the vagina. Final sponge, needle, and instrument counts were reported as correct. There were no known complications. The patient was transferred to Recovery in good condition. BELÉN ARMANDO /[id number]
== END 2020-10-25 11:24 | disposition home or self-care (01) ==
LOC: MW.SDS 07:49
PROVIDERS: ATTEND Obstetrics & Gynecology
DX: N92.0 Excessive and frequent menstruation with regular cycle (principal); D35.2 Benign neoplasm of pituitary gland; E03.9 Hypothyroidism, unspecified; Z98.890 Other specified postprocedural states; Z87.891 Personal history of nicotine dependence; Z79.890 Hormone replacement therapy
CPT/HCPCS: 36415; 58563; 85027; 88305; 88331; A9270; J0131; J1100; J1885; J2405; J2704; J2765; J3010; J3490; J7120; 00952

== ENCOUNTER 2021-06-14 20:13 | Emergency (ER) | payer BC ==
[2021-06-14] MEDS ORDERED: Ondansetron 4 MG Tab.DIS PO ONE (21:43)
[2021-06-14] MEDS ORDERED: Sulfamethoxazole/Trimethoprim 800-160 MG Tab PO ONE (21:43)
[2021-06-14] MEDS ORDERED: Ketorolac 30 MG/ML SDV IM ONE (21:57)
== END 2021-06-14 22:05 | disposition home or self-care (01) ==
LOC: MW.ED 20:13
DX: N30.90 Cystitis, unspecified without hematuria (principal); Z79.899 Other long term (current) drug therapy
CPT/HCPCS: 81001; 81025; 87086; 96372; 99284; A9270; J1885; 99283